=== PATIENT | female | born 1980 | race Caucasian/White ===

== ENCOUNTER 2017-09-13 16:39 | Emergency (ER) | END 2017-09-14 01:04 | disposition home or self-care (01) ==

== ENCOUNTER 2018-03-01 10:42 | Outpatient (CLI) | END 2018-03-01 12:22 | disposition home or self-care (01) ==

== ENCOUNTER 2018-04-10 14:48 | Emergency (ER) | END 2018-04-10 18:45 | disposition home or self-care (01) ==